=== PATIENT | female | born 1995 | race Caucasian/White ===

== ENCOUNTER 2017-04-12 16:18 | Emergency (ER) | payer OTHER ==
[~2017-04-12] VITALS: Ht 162.6 cm; Wt 99.7 kg
[~2017-04-12 16:18] MED LIST: BCPILLS PO; FLUO20CA34 PO
[2017-04-12 16:21] VITALS: TEMP 36.8; Ht 162.6 cm; Wt 99.7 kg
[2017-04-12] MEDS ORDERED: XYLOCAINE 1%/SOD BICARB 20 ML VIAL INFIL ONE ×2 (16:40→16:45)
[2017-04-12] MEDS ORDERED: DIPHTHERIA/TETANUS/PERTUSSIS 0.5 ML SYR/VIAL IM. ONE (16:45)
[2017-04-12] MEDS ORDERED: CEPH500C PO (17:31)
--- NOTE | 2017-04-12 17:34 | EMERGENCY ROOM VISIT NOTE ---
ED Visit Note First contact with patient: 16:29 CHIEF COMPLAINT: Wrist laceration HISTORY OF PRESENT ILLNESS: This 21-year-old female patient presents to the emergency department with her mother after cutting the left wrist on a piece of glass. The bleeding has stopped. Denies weakness or numbness of the left wrist or hand. The patient rates the pain as stinging and 2/10. The patient denies any other injuries. The patient's Tetanus shot is not up to date. REVIEW OF SYSTEMS: A 6 system review of systems was completed with positives and pertinent negatives listed in the HPI. ALLERGIES: No known drug allergies MEDICATIONS: Reviewed PMH: Otherwise healthy SOCIAL HISTORY: Smokes a few cigarettes per day, occasional alcohol use PHYSICAL EXAM: Vital Signs: Reviewed Nurse's notes, vital signs stable. GENERAL : 21-year-old female, in no acute distress, well-developed, well-nourished. SKIN: There is a 3 cm long laceration on the volar aspect of the left wrist. The edges gape apart with traction. There is no foreign material in the wound and it looks clean. There is no active bleeding. The flexor tendon is visible, but intact. Full flexion and extension of the wrist. Capillary refill less than 2 seconds. Normal sensation to light and sharp touch. EMERGENCY DEPARTMENT COURSE: I examined the patient. Verbal consent was obtained to perform the procedure. Using sterile technique the wound was cleansed with Betadine. The area was sterilely draped. 5 ml of 1% buffered lidocaine was used to anesthetize the laceration on the wrist. Once the patient was anesthetized, the wound was copiously irrigated under pressure with sterile saline. The wound was explored and was as described above. The laceration was repaired using 10 simple interrupted 5-0 nylon sutures with the wound edges being well approximated. The patient tolerated the procedure well. Hemostasis was achieved. The area was cleaned with sterile saline and dressed with bacitracin ointment and bandage. The patient was given 1 dose of Keflex. The patient was given Td immunization. The patient was discharged home in good condition. DIAGNOSIS: Left wrist laceration DISCHARGE INSTRUCTIONS & TREATMENT: Take entire course of antibiotics Keep wound clean. It is okay to gently wash the area with soapy water. Do not submerse it in water for long periods of time such as swimming, going in hot tubs or taking baths until the sutures come out. Do not allow any crusting or dried blood to accumulate on sutures. If this occurs, use a 1:1 solution of hydrogen peroxide/water on a Q-tip to clean the wound. Use an antibiotic ointment for 3-4 days, then let wound dry. Suture removal in 14 days. Return sooner for any signs of infection (increasing redness, swelling, drainage). Ice and elevate for swelling and pain. Ibuprofen 600 mg and Tylenol 1000 mg every 6 hrs for pain.
[2017-04-12] MEDS ORDERED: CEPHALEXIN MONOHYDRATE 250 MG CAP PO ONE (17:45)
[2017-04-12 18:05] VITALS: BP 107/64; PULSE 88; O2SAT 99
== END 2017-04-12 18:16 | disposition home or self-care (01) ==
LOC: C.EDB 16:19 → C.EDD 18:16
DX: S61.512A Laceration without foreign body of left wrist, initial encounter (principal); W25.XXXA Contact with sharp glass, initial encounter; F17.210 Nicotine dependence, cigarettes, uncomplicated; Z23 Encounter for immunization

== ENCOUNTER 2019-02-18 08:46 | Observation (INO) ==
--- NOTE | 2019-02-12 14:27 | PAT Medication Instructions ---
Medication Instructions Date of Service February 12, 2019 Home Medications fluoxetine [Prozac] 40 mg PO QAM montelukast [Singulair] 10 mg PO PM norgestimate-ethinyl estradiol [Tri-Sprintec (28)] 1 tab PO QAM bupropion HCl [Wellbutrin XL] 150 mg PO QAM hydroxyzine HCl 25 mg PO QID NEEDED DO NOT take the morning of surgery norgestimate-ethinyl estradiol [Tri-Sprintec (28)] 1 tab PO QAM Take morning of surgery With a small sip of water, OTHERWISE NOTHING TO EAT OR DRINK AFTER MIDNIGHT: fluoxetine [Prozac] 40 mg PO QAM bupropion HCl [Wellbutrin XL] 150 mg PO QAM hydroxyzine HCl 25 mg PO QID NEEDED (if needed) Take evening before surgery montelukast [Singulair] 10 mg PO PM Other Notes If you have any questions please call us at [phone] or [phone] or [phone] or [phone]
--- NOTE | 2019-02-12 14:29 | Anesthesiology Consultation ---
Date of Service February 12, 2019 Assessment & Plan (1) Encounter for pre-operative examination: - No prior anesthesia records available. Chart Review Chart Review: Acceptable Risk for Surgery and Patient seen in Pre Admission Testing Consults Requested none Teaching & Discussion Pre-Anesthesia Teaching/Discussion Notes: Instructed NPO after midnight before surgery, except medications with 15 cc of water. Medication instructions provided according to the PAT guidelines. History Surgery Operation Date: 02/18/19 07:30 Proposed Procedures p Bilateral Reduction Mammoplasty - Nila Santiago MD Height/Weight Height: 5 ft 5 in Weight: 102.3 kg Allergies Allergy/AdvReac Type Severity Reaction Status Date / Time shrimp Allergy Unknown GI SYMPTOMS Verified 02/09/19 15:05 Penicillins AdvReac Intermediate Nausea and Verified 02/12/19 14:33 Vomiting PISTASCHIO Allergy Unknown HIVES Uncoded 02/09/19 15:05 Medications Home Medications Medication Instructions Recorded Confirmed Last Taken fluoxetine [Prozac] 40 mg PO QAM 02/09/19 02/09/19 Unknown montelukast [Singulair] 10 mg PO PM 02/09/19 02/09/19 Unknown norgestimate-ethinyl estradiol 1 tab PO QAM 02/09/19 02/09/19 Unknown [Tri-Sprintec (28)] bupropion HCl [Wellbutrin XL] 150 mg PO QAM 02/12/19 02/12/19 Unknown hydroxyzine HCl 25 mg PO QID PRN 02/12/19 02/12/19 Unknown Past Medical History Medical History Anxiety Chronic neck and back pain CURRENT ISSUE Depression History of pneumonia GIVEN SINGULAIR TO DECREASE INCIDENCE Seasonal allergies Exercise / Class Metabolic Activity II 4-5 Yardwork/Stairs/Walk up hill (Walks 1-1.5 miles per day. Able to climb FOS easily. Denies CP or SOB. ) Past Surgical History Surgical History Hx of tonsillectomy Hx of wisdom tooth extraction Past Anesthesia History No Hx of Anesthesia Complications and No Family Hx of Anesthesia Complications History of PONV No Hx of PONV and No Hx of Motion Sickness Social History Smoking Status: Former smoker Do You Dip or Chew Tobacco: No Smoking End Date: Quit cigarettes 1 year ago, Quit Juul 3 weeks ago. Hx Alcohol Use: Yes Alcohol type: beer alcohol intake frequency: a few times a week Hx Substance Use: Yes (EVERY 2-3 WKS) substance use type: marijuana Review of Systems Patient denies chest pain, shortness of breath, dyspnea on exertion, joint pain, cough, wheezing, palpitations. +Acid Reflux (rare- will take OTC meds) Physical Exam Vital Signs BP: 117/78 P: 85 R: 16 T: 98.4 SPO2: 97% on RA Constitutional + obese ENMT Thyromental Distance: > or= 3.5 Finger Breadths (4) Mallampati Class: I Neck normal visual inspection and trachea midline; neck extension not limited Respiratory normal respiratory effort Auscultation: lungs clear to auscultation bilaterally Cardiovascular Rate/Rhythm: regular rate and regular rhythm Heart Sounds: no murmur Neurologic moves all extremities Psychiatric Orientation: alert and oriented x 3 Testing Laboratory Results 02/12/19 14:48 PT 11.0 Seconds (9.0-12.0) 02/12/19 14:48 INR 1.1 (0.9-1.1) 02/12/19 14:48 APTT 30.1 Seconds (21.0-31.0) 02/12/19 14:48 Laboratory Tests 02/12/19 14:48 Sodium 139 Potassium 3.5 Chloride 109 H Carbon Dioxide 26 BUN 6 L Creatinine 1.00 Glucose 106 H
[2019-02-12 15:34] LABS: Basophils # (auto) 0.04 K/uL (0-0.2); Basophils % (auto) 0.4 %; Eosinophils # (auto) 0.41 K/uL (0-0.5); Eosinophils % (auto) 4.6 %; Hematocrit (blood only) 39.7 % (37-47); Hemoglobin 13.4 g/dL (12.0-16.0); Immature Granulocytes # (auto) 0.02 K/uL (0.00-0.02); Immature Granulocytes % (auto) 0.2 %; Lymphocytes # (auto) 2.81 K/uL (1.2-3.4); Lymphocytes % (auto) 31.4 %; Mean Corpuscular Hgb Conc 33.8 g/dL (32-36); Mean Corpuscular Volume 86.1 fL (80-100); Monocytes # (auto) 0.63 K/uL (0.11-0.59); Neutrophils # (auto) 5.05 K/uL (1.4-6.5); Neutrophils % (auto) 56.4 %; Platelet Count 331 K/uL (130-400); RDW Coefficient of Variation 12.7 % (11.5-14.5); Red Blood Count 4.61 M/uL (4.2-5.4); White Blood Count 8.96 K/uL (4.8-10.8)
[2019-02-12 15:43] LABS: INR 1.1 (0.9-1.1); Partial Thromboplastin Ratio 1.1; Partial Thromboplastin Time 30.1 Seconds (21.0-31.0)
[~2019-02-18 08:46] MED LIST changes: -BCPILLS PO; +CEFAZOLIN 2000MG 2,000 MG/15 ML SYR IV SCH; -FLUO20CA34 PO; +LR 15ML/HR IV SCH
[2019-02-18] MEDS ORDERED: fentaNYL citrate 100 MCG/2 ML VIAL IV PRN (09:44)
[2019-02-18] MEDS ORDERED: ATROPINE SULFATE 0.1 MG/ML 10ML SYR IV PRN (09:44)
[2019-02-18] MEDS ORDERED: PROMETHAZINE HCL 12.5 MG in SODIUM CHLORIDE 0.9% 50 ML IV PRN ×2 (09:44→14:38)
[2019-02-18] MEDS ORDERED: HYDROmorphone INJ 1 MG/ML SYRINGE IV PRN (09:44)
[2019-02-18] MEDS ORDERED: ePHEDrine sulfate 50 MG/ML AMP IV PRN (09:44)
[2019-02-18] MEDS ORDERED: ONDANSETRON INJ 2 MG/ML 2 ML VIAL IV PRN ×2 (09:44→14:38)
--- NOTE | 2019-02-18 09:50 | History & Physical Bridge Note ---
Date of Service February 18, 2019 History & Physical Bridge Note I have examined the patient, reviewed the History & Physical and in the interval since the performance of the History & Physical I have noted the following changes of clinical significance: urine nicotine/cotinine negative. Will plan to proceed.
[2019-02-18] MEDS ORDERED: fentaNYL citrate 100 MCG/2 ML VIAL ONE ×3 (09:52→14:53)
[2019-02-18] MEDS ORDERED: MIDAZOLAM HCL 1 MG/ML 2ML VIAL ONE (09:52)
[2019-02-18] MEDS ORDERED: PROPOFOL IV EMULSION 10 MG/ML 20 ML VIAL IV ONE (09:52)
[2019-02-18] MEDS ORDERED: LIDOCAINE HCL 2% 2 ML VIAL/AMP(20MG/ML) INFIL ONE (09:52)
[2019-02-18] MEDS ORDERED: ROCURONIUM BROMIDE 10 MG/ML 5 ML VIAL ONE (09:52)
[2019-02-18] MEDS ORDERED: EPINEPHrine INJ 1 MG/ML AMP ONE (09:53)
[2019-02-18] MEDS ORDERED: BUPIVACAINE 0.25% 30 ML VIAL ONE (09:54)
[2019-02-18] MEDS ORDERED: LIDOCAINE/EPINEPHRINE 1% 20 ML VIAL ONE (09:54)
[2019-02-18] MEDS ORDERED: LIDOCAINE HCL 1% 20 ML VIAL ONE (09:54)
[2019-02-18] MEDS ORDERED: ACETAMINOPHEN 1000 MG/100 ML IV IV ONE (09:57)
[2019-02-18 10:33] LABS: Pregnancy Test, Serum Negative (Negative)
[2019-02-18] MEDS ORDERED: KETAMINE HCL INJ 50 MG/ML 10 ML VIAL ONE (10:47)
[2019-02-18] MEDS ORDERED: HYDROmorphone INJ 2 MG/ML SYR/VIAL ONE (11:38)
[2019-02-18] MEDS ORDERED: ONDANSETRON INJ 2 MG/ML 2 ML VIAL ONE (14:18)
[2019-02-18] MEDS ORDERED: DEXAMETHASONE SOD INJ 4 MG/ML VIAL ONE (14:18)
[2019-02-18] MEDS ORDERED: GLYCOPYRROLATE 0.2 MG/ML VIAL ONE (14:18)
[2019-02-18] MEDS ORDERED: NEOSTIGMINE METHYLSULFATE 5 MG/5 ML SYR ONE (14:18)
--- NOTE | 2019-02-18 14:22 | Post Operative Brief Note ---
Immediate Post Op Note v1 Date of Surgery February 18, 2019 Pre & Post Diagnosis Operation Date: 02/18/19 09:50 Pre-Op Diagnosis: Symptomatic Bilateral Macromastia Post-Op Diagnosis: Symptomatic Bilateral Macromastia Procedure Operation Date: 02/18/19 09:50 Actual Procedures p Bilateral Reduction Mammoplasty(Bilateral) - Nila Santiago MD Surgeon Nila Santiago MD Sow Manager Breonna Aly PA-C, Jia Hernandez PA-C Estimated Blood Loss 75 Findings Consistent with Post-Op Diagnosis Specimens Left breast tissue 768 grams right breast tissue 852 grams Drains Main-[place] Drain (x2) Anesthesia Type General Complications none
--- NOTE | 2019-02-18 14:24 | Operative Report ---
Post Operative Report Pre & Post Diagnosis Operation Date: 02/18/19 09:50 Pre-Op Diagnosis: Symptomatic Bilateral Macromastia Post-Op Diagnosis: Symptomatic Bilateral Macromastia Procedure Operation Date: 02/18/19 09:50 Actual Procedures p Bilateral Reduction Mammoplasty(Bilateral) - Nila Santiago MD Surgeon Nila Santiago MD Integrated Circuit Design Engineer Breonna Aly PA-C, Jia Hernandez PA-C Estimated Blood Loss 75 Findings Consistent with Post-Op Diagnosis Specimens left breast tissue 768 grams right breast tissue 852 grams Drains JPx2 Anesthesia Type General Complications none Indications back, neck and shoulder pain due to macromastia Description of Procedure The risks, benefits, and alternatives of the procedure were explained to the patient who agreed and signed consent. She was identified and marked in the preoperative holding area. She was brought to the operating room where she was positioned supine and placed under general anesthesia without incident. Surgical site was prepped and draped sterilely. A time-out procedure was performed. I began with the left side. Markings were reassessed and a 7 cm pedicle was marked. 1% lidocaine with epinephrine was used to anesthetize the planned incisions. A 42 mm cookie cutter was used to circumscribe the nipple-areolar complex. The previously marked 7 cm pedicle was incised using a 15 blade scalpel and deepithelized. I began with the medial dissection of the pedicle using electrocautery. Cautery was used to incise through dermis and breast parenchyma down to the chest wall, taking care not to undermine the pedicle during dissection. A similar procedure was undertaken on the lateral aspect of the pedicle again taking care not to undermine. Lastly, the pedicle was dissected out superiorly using electrocautery and this was carried down to the chest wall as well. I then began with excision of the medial breast tissue followed by lateral aspect of the breast tissue and surrounding keyhole incision. A 15 blade scalpel was used to make the inframammary fold incision and electrocautery was used to deepen the incision through dermis and breast parenchyma. Dissection was then carried superiorly to the level of the superior incision. Superior incision was then incised using a 15 blade scalpel and again dissected using electrocautery. This was undertaken laterally and then around the keyhole portion of the incision. Care was taken to leave some fat on the lateral pectoralis fascia in order to protect the T4 intercostal nerve. Hemostasis was achieved with electrocautery. The specimen was passed off in its entirety for weighing. Additional resection was undertaken from the superior flap in order to facilitate closure of the breast and to provide the best shape. The total resection weight of the left breast was 768 grams. The wound was irrigated with saline and hemostasis was achieved with electrocautery. 0.25% Marcaine plain was used to anesthetize the incisions as well as the pectoralis fascia. A 15 Russian Kuldip drain was brought out through a separate stab incision. The nipple-areolar complex was brought into the keyhole using 2-0 Vicryl deep dermal suture. The wound was closed first in a lateral to mid breast direction and then medial to mid breast direction using 2-0 Vicryl deep dermal sutures. Vertical limb was also approximated using 2-0 Vicryl deep dermals and the nipple-areolar complex was inset using 2-0 Vicryl deep dermal sutures. Next, the superficial dermal layer was closed using 2-0 PDO running Quill suture along the inframammary fold and 3-0 PDS interrupted dermal sutures along the vertical limb and nipple- areolar complex. Lastly 3-0 Monocryl running subcuticular suture was placed. A similar procedure was undertaken on the right side with maximal excision weight of 852 grams. Breasts were symmetric and nipple-areolar complexes were viable bilaterally following wound closure. Dermabond Prineo was applied along the inframammary fold and vertical limb and Dermabond was placed around the nipple-areolar complex. Dry dressings and a surgical bra were placed. The patient was awakened and transferred to recovery room in satisfactory condition. Breonna Aly PA-C was present and scrubbed throughout the procedure and was instrumental in providing retraction during dissection of the pedicle and assisting in wound closure. I attest to the content of the Intraoperative Record and any orders documented therein. Any exceptions are noted below.
[2019-02-18] MEDS ORDERED: ACETAMINOPHEN 325 MG TAB PO PRN (14:38)
[2019-02-18] MEDS ORDERED: MoRPHine SULFATE 2 MG/ML CARP IV PRN (14:38)
[2019-02-18] MEDS ORDERED: OXAZEPAM 10 MG CAPSULE PO PRN (14:38)
[2019-02-18] MEDS ORDERED: MoRPHine SULFATE 4 MG/ML 1 ML CARP\\VIAL IV PRN (14:38)
[2019-02-18] MEDS ORDERED: DiphenhydrAMINE HCL 50 MG/ML VIAL IV PRN (14:38)
[2019-02-18] MEDS ORDERED: OXYCODONE/ACETAMINOPHEN 5mg/325mg TAB PO PRN (14:38)
[2019-02-18] MEDS ORDERED: MoRPHine SULFATE 10 MG/ML CARP/VIAL IV PRN (14:38)
[2019-02-18] MEDS ORDERED: HYDROmorphone INJ 1 MG/ML SYRINGE ONE (14:54)
--- NOTE | 2019-02-18 15:26 | Anesthesiology Progress Note ---
Date of Service February 18, 2019 Anesthesia Post Procedure Vital Signs Vital Signs: Temp Pulse Pulse Resp BP BP Pulse Ox 02/18/19 14:42 37.3 C 101 H 18 139/74 97 02/18/19 09:34 36.7 C 101 H 16 126/71 98 Pain Intensity Bilateral Breast: Pain Intensity: 3 Transfer of Care Handoff Completed per policy Notes Mental Status: alert / awake / arousable and participated in evaluation Patient Amnestic to Procedure: Yes Nausea / Vomiting: adequately controlled Pain: adequately controlled Airway Patency, RR, SpO2: stable & adequate BP & HR: stable & adequate Hydration State: stable & adequate Anesthetic Complications: no major complications apparent and Pt Satisfied with anesthetic care
[2019-02-18] MEDS: OXYCODONE/ACETAMINOPHEN 5mg/325mg TAB PO PRN ×2 (17:32→21:35)
[2019-02-18] MEDS: CEFAZOLIN 2000MG 2,000 MG/15 ML SYR IV SCH (18:13)
[2019-02-18] MEDS: D5W AND 1/2NSS + 20MEQ KCL 20 MEQ/1,000 ML BAG IV SCH (18:13)
[2019-02-18] MEDS ORDERED: MONTELUKAST SODIUM 10 MG TABLET PO SCH (21:00)
[2019-02-19] MEDS: CEFAZOLIN 2000MG 2,000 MG/15 ML SYR IV SCH (02:03)
[2019-02-19] MEDS: OXYCODONE/ACETAMINOPHEN 5mg/325mg TAB PO PRN ×2 (06:04→10:59)
[2019-02-19] MEDS: D5W AND 1/2NSS + 20MEQ KCL 20 MEQ/1,000 ML BAG IV SCH (06:05)
--- NOTE | 2019-02-19 08:14 | Surgery Progress Note ---
Date of Service February 19, 2019 Assessment & Plan (1) Encounter for pre-operative examination: POD #1- Bilateral Reduction Mammoplasty Patient seen and examined this AM and doing very well. Pain well controlled. Patient denies nausea and is tolerating a regular diet. HAFSA drains (x2) removed at bedside without issue. Surgical dressing remains in place- clean and dry. Surgical bra in place. Patient ok for discharge. Both verbal and written discharge instructions provided. All questions answered. Patient has follow-up visit tomorrow at [facility] office. Subjective Patient resting comfortably in bed- pain is well controlled. No new concerns or complaints overnight. Patient notes reported improvement in back and neck pain that she had prior to surgery. Physical Exam Chest (Breasts): Additional Comments: Patient has surgical dressings in place- dry. HAFSA drains (x2) still in place. Results & Data Vital Signs (Past 12 Hours) Vital Signs Temp Pulse Resp BP Pulse Ox 02/19/19 07:58 36.6 C 77 18 121/71 97 02/19/19 03:20 37.0 C 88 16 110/57 L 96 02/18/19 23:36 36.7 C 94 H 16 110/69 95
[2019-02-19] MEDS ORDERED: BuPROPion XL 150 MG TABCR PO SCH (09:00)
[2019-02-19] MEDS ORDERED: MULTIVITAMIN TAB PO SCH (09:00)
[2019-02-19] MEDS ORDERED: FLUOXETINE HCL 20 MG CAP PO SCH (09:00)
--- NOTE | 2019-02-20 12:52 | Discharge Summary ---
Date of Service February 20, 2019 Admission HPI Per Admitting Provider see admission H&P Admission Exam Per Admitting Provider see admission H&P Principal Diagnosis symptomatic macromastia Discharge Exam Constitutional WD/WN, vitals as above Skin + incision (CDI, nipples viable) Psychiatric Orientation: alert and oriented x 3 Discharge Data Allergies Allergy/AdvReac Type Severity Reaction Status Date / Time shrimp Allergy Unknown GI SYMPTOMS Verified 02/18/19 09:29 Penicillins AdvReac Intermediate Nausea and Verified 02/18/19 09:29 Vomiting PISTASCHIO Allergy Unknown HIVES Uncoded 02/18/19 09:29 Procedures Performed Operation Date: 02/18/19 09:50 Actual Procedures p Bilateral Reduction Mammoplasty(Bilateral) - Nila Santiago MD Hospital Course (1) Breast hypertrophy: Patient presented to [facility] with history of symptomatic macromastia. She was taken to the OR and underwent bilateral breast reduction. There were no intraoperative complications. She was taken to recovery and transferred to med/surg for observation. On POD#1, she was feeling well. She was tolerating a regular diet and ambulating. On exam, her vitals were stable. Her incisions were CDI and nipples viable. Her drains were removed. She was discharged home with instructions to follow-up in the office in one day. Total Time Total Time Spent Total Time Spent (In Minutes): 15 Total Time Includes: Examination of the Patient, Discharge Planning and Medication Reconciliation Discharge Plan Discharge Items Patient Disposition: Home - Self-Care Reason For Visit: Symptomatic Macromastia Discharge Diagnosis: Symptomatic Macromastia Discharge Goals: Decrease discomfort and Improve function Activity: As commented below Non-emergency contact: Surgeon Call non-emergency contact if: you have any medication questions, your pain is not controlled, your temperature is above 101.5, your wound has increased redness and your wound has increased drainage Follow-up/Referrals: Nila Santiago MD [Physician] - (Please follow-up at the [facility] office as scheduled on 02/20/2019. Please call the office with any questions or concerns. ) PCP,NO [Primary Care Provider] - Diet: Regular Addtl Provider Instructions: ACTIVITY RECOMMENDATIONS: __Normal activities _X_No bending, lifting or straining X__No driving __Driving allowed when you are off pain medications _X_Walking permitted __You should have help at home for ___ days DRESSINGS: __No dressings required X Keep dressings dry/in place until first office visit __Remove dressings ___ and leave dressings off __Apply ice ___ days __Remove dressings and reapply garment __Apply antibiotic ointment (Bacitracin, Neosporin, etc) to wounds 3-4 times/day for 10 days BATHING: _X_Keep dressings dry _X_Sponge bathing permitted __Showering permitted X__No swimming, hot tubs or soaking in a tub MEDICATIONS: Resume previous medications unless instructed otherwise by your surgeon. X__Do not use aspirin, Motrin, Advil or Ibuprofen as these may promote bleeding. Please use Tylenol. X__Prescription(s) provided: You were provided your prescription for pain medication at your last office visit, please use as prescribed. OTHER INSTRUCTIONS: __Record drain output 2-3 times per day SPECIAL CARE INSTRUCTIONS: * It is normal to have a mild fever after surgery. If your temperature is higher than 101.5 degrees F, please call the office at [phone]. * Constipation is a typical side effect of pain medication. An [id number] stool softener will help relieve this. * Leaking around surgical drains may occur and should not cause concern. Sometimes these drains become clogged. If this happens, remove the bulb and milk the clot out of the tube, then replace the bulb. * Drainage from wounds after liposuction is normal and should be expected. Garments will become soiled. You should protect furniture and bedding. This drainage should mostly subside within 2-3 days. Leave garments in place unless instructed to remove them. * If you have unusual drainage from a wound or are concerned you have an infection or have any questions or concerns, please call the office at [phone]. FOLLOW UP VISIT: If not already scheduled, please call the office, , when you return home after surgery to schedule an appointment to be seen in 1 day. Prescriptions: Continued fluoxetine [Prozac] 40 mg Capsule 40 mg PO QAM RF: 0 norgestimate-ethinyl estradiol [Tri-Sprintec (28)] 0.18/0.215/0.25 mg-35 mcg (28) Tablet 1 tab PO QAM RF: 0 montelukast [Singulair] 10 mg Tablet 10 mg PO PM RF: 0 hydroxyzine HCl 25 mg Tablet 25 mg PO QID PRN (Reason: Anxiety) RF: 0 bupropion HCl [Wellbutrin XL] 150 mg Tablet Extended Release 24 Hr 150 mg PO QAM RF: 0 Stand-Alone Forms: Fashism, Opioid Pain Management Krames/Other Patient Handouts: Surgery Prevent DVT After, Surgery Breast Reduction, Reduction Breast Dc Discharge Orders: Discharge Order (Routine); Ordered 02/19/19 Ordered By: Jia Hernandez Admission Data Admit Date/Time: 02/18/19 14:38 Attending Provider: Nila Santiago Admit Provider: Nila Santiago Primary Care Provider: PCP,NO Service: Surgical Services Other Interventions: Discharge Summary Assessment (RN) Last Done: 02/19/19 09:18 Pending Studies at Discharge: Yes Studies:: Pathology report. DC Date/Time DO NOT enter until pt leaves facility: 02/19/19 11:39
== END 2019-02-19 11:39 | disposition home or self-care (01) ==
LOC: ASU 08:46 → 3W 08:46

== ENCOUNTER 2025-04-27 05:26 | Inpatient (IN) ==
--- NOTE | 2025-04-20 09:09 | Anesthesiology Consultation ---
Date of Service April 20, 2025 Assessment & Plan (1) Encounter for pre-operative examination: Infectious disease screening: Per assessment on 04/20/25- No known recent infectious disease contacts or current infectious disease symptoms. Chart Review Chart Review: employee's representative initiated History Surgery Operation Date: 04/27/25 09:50 Proposed Procedures p Repeat Section - Chip Ayala MD Height/Weight Height: 5 ft 5 in Weight: 121.563 kg Allergies Allergy/AdvReac Type Severity Reaction Status Date / Time pistachio nut Allergy Severe Hives Verified 04/20/25 08:29 Penicillins AdvReac Intermediate Nausea/Vomi Verified 04/20/25 09:07 ting prednisone AdvReac Intermediate "Makes Verified 04/20/25 09:07 angry" Medications Home Medications Medication Instructions Recorded Confirmed Last Taken montelukast 10 mg tablet 10 mg PO PM 02/09/19 04/20/25 07/24/19 (Singulair) PNV 153-FA 400 mcg-om3 35 mg-dha 1 tab PO QAM 04/20/25 04/20/25 Unknown 25 mg-epa 5 mg-fish oil chew tablet ( Gummies) acyclovir 400 mg tablet 400 mg PO TID 04/20/25 04/20/25 Unknown albuterol sulfate 90 mcg/actuation 1 inh inhalation QID PRN Wheezing 04/20/25 04/20/25 Unknown aerosol inhaler aspirin 81 mg tablet,delayed 81 mg PO QAM 04/20/25 04/20/25 Unknown release iron,carbonyl 65 mg-vitamin C 125 1 tab PO BID 04/20/25 04/20/25 Unknown mg tablet,delayed release (Vitron-C) metoclopramide HCl 5 mg tablet 5 mg PO Q6H PRN Nausea And Vomiting 04/20/25 Unknown (Reglan) omeprazole 40 mg capsule,delayed 40 mg PO QAM 04/20/25 04/20/25 Unknown release sertraline 25 mg tablet 25 mg PO QAM 04/20/25 04/20/25 Unknown Past Medical History Medical History Angiomyolipoma left kidney Anxiety Asthma Depression GERD (gastroesophageal reflux disease) History of kidney stones passed on own Seasonal allergies Past Family History Family History Other No pertinent family history in first degree relatives Past Surgical History Surgical History History of section x1 History of esophagogastroduodenoscopy (EGD) Hx of tonsillectomy Hx of wisdom tooth extraction S/P bilateral breast reduction (02/18/19) Social History Smoking Status: Former smoker Do You Dip or Chew Tobacco: No Smoking End Date: 5 yrs ago Hx Alcohol Use: No Alcohol type: beer alcohol intake frequency: a few times a week Hx Substance Use: No substance use type: does not use Substance Use Type Other:: CBD OIL
[2025-04-27] MEDS: LACTATED RINGER'S 1,000 ML IV SCH ×2 (06:07→07:41)
[2025-04-27 06:18] LABS: Hematocrit (blood only) 33.7 % (37.0-47.0); Hemoglobin 11.3 g/dl (12.0-16.0); Immature Granulocytes # (auto) 0.05 K/uL (0.01-0.20); Immature Granulocytes % (auto) 0.7 %; Mean Corpuscular Hemoglobin 27.7 pg (25.0-34.0); Mean Corpuscular Volume 82.6 fL (80.0-100.0); Platelet Count 203 K/uL (130-400); RDW Standard Deviation 43.7 fL (36.4-46.3); Red Blood Count 4.08 M/uL (4.20-5.40); White Blood Count 7.51 K/ul (4.8-10.8)
[2025-04-27] MEDS: ACETAMINOPHEN 500 MG TAB PO SCH (06:20)
[2025-04-27] MEDS ORDERED: SODIUM CHLORIDE 0.9% 100 ML IV PRN (07:13)
[2025-04-27] MEDS ORDERED: ONDANSETRON INJ 2 MG/ML 2 ML VIAL ONE (07:32)
[2025-04-27] MEDS ORDERED: DEXAMETHASONE SOD INJ 4 MG/ML VIAL ONE (07:32)
[2025-04-27] MEDS ORDERED: PHENYLEPHRINE HCL 25 MG/250 ML NSS IV ONE (07:32)
[2025-04-27] MEDS ORDERED: MoRPHine SULFATE PF 1 MG/ML 10 ML AMP/VIAL ONE (07:35)
[2025-04-27] MEDS ORDERED: OXYTOCIN 10 UNITS/ML VIAL ONE (07:39)
--- NOTE | 2025-04-27 07:51 | History & Physical Report ---
Date of Service April 27, 2025 Assessment & Plan (1) History of section: Plan: elective repeat Admission and Anticipated Discharge Date Admission Date: April 27, 2025 History of Present Illness Chief Complaint: elective repeat Primary Care Provider: Tisha Ward PA-C 29 F P1001 at term presents for elective repeat at term Allergies Allergy/AdvReac Type Severity Reaction Status Date / Time pistachio nut Allergy Severe Hives Verified 04/20/25 08:29 Penicillins AdvReac Intermediate Nausea/Vomi Verified 04/20/25 09:07 ting prednisone AdvReac Intermediate "Makes Verified 04/20/25 09:07 angry" Home Medications Medication Instructions Recorded Confirmed Type montelukast 10 mg tablet 10 mg PO PM 02/09/19 04/27/25 History (Singulair) PNV 153-FA 400 mcg-om3 35 mg-dha 1 tab PO QAM 04/20/25 04/27/25 History 25 mg-epa 5 mg-fish oil chew tablet ( Gummies) acyclovir 400 mg tablet 400 mg PO TID 04/20/25 04/27/25 History albuterol sulfate 90 mcg/actuation 1 inh inhalation QID PRN Wheezing 04/20/25 04/20/25 History aerosol inhaler aspirin 81 mg tablet,delayed 81 mg PO QAM 04/20/25 04/27/25 History release iron,carbonyl 65 mg-vitamin C 125 1 tab PO BID 04/20/25 04/27/25 History mg tablet,delayed release (Vitron-C) metoclopramide HCl 5 mg tablet 5 mg PO Q6H PRN Nausea And Vomiting 04/20/25 04/20/25 History (Reglan) omeprazole 40 mg capsule,delayed 40 mg PO QAM 04/20/25 04/27/25 History release sertraline 25 mg tablet 25 mg PO QAM 04/20/25 04/27/25 History Patient History Medical History Angiomyolipoma left kidney GERD (gastroesophageal reflux disease) History of kidney stones passed on own Asthma Depression Anxiety Seasonal allergies Surgical History History of esophagogastroduodenoscopy (EGD) History of section x1 S/P bilateral breast reduction (02/18/19) Hx of tonsillectomy Hx of wisdom tooth extraction Family History Other No pertinent family history in first degree relatives Social History Smoking Status: Never smoker Tobacco Type: E-cigarettes / Vaping Smoking End Date: 5 yrs ago; Second Hand Exposure: No; Do You Dip or Chew Tobacco: No; Tobacco Cessation Education Requested by Patient: No Hx Alcohol Use: No Hx Substance Use: No Preferred Language: Kenyan Communication Ability: Effective 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 Beliefs That Will Affect Care: None marital status: Current Living Situation: Spouse and Family Other Information That Helps Us Care for You: No Feels Safe at Home: Yes Safety Concerns: Feels Safe At This Time Assistive Devices: Glasses OB History Primary at [facility] [place] [employer] History Herpes Review of Systems All systems reviewed & are unremarkable except as noted in HPI & below Physical Exam Constitutional: WD/WN, vitals as above Eyes: PERRL, conjunctivae normal, anicteric sclerae Respiratory: normal respiratory effort, lungs clear to auscultation Cardiovascular: Rate/Rhythm: regular rate and regular rhythm Gastrointestinal (Abdomen): Inspection/Auscultation: abdomen normal to inspection and + abdominal surgical incision Musculoskeletal: Extremities: extremities normal to inspection Skin: no rashes, warm and dry Neurologic: patellar DTR's 2+ bilat, sensation intact Psychiatric: A+Ox3, euthymic affect Results & Data Vital Signs (Past 12 Hours) Vital Signs Temp Pulse Resp BP 04/27/25 07:08 36.7 C 18 04/27/25 07:05 83 113/60 04/27/25 05:46 36.8 C 18 04/27/25 05:40 107 H 120/70 Laboratory Results 04/27/25 05:59 WBC 7.51 RBC 4.08 L Hgb 11.3 L Hct 33.7 L MCV 82.6 MCH 27.7 MCHC 33.5 RDW Std Deviation 43.7 RDW Coeff of Cirilo 14.6 H Plt Count 203 MPV 9.7 Immature Gran % (Auto) 0.7 Neut % (Auto) 71.3 Lymph % (Auto) 16.8 Sutter % (Auto) 9.2 Eos % (Auto) 1.6 Baso % (Auto) 0.4 Neut # (Auto) 5.36 Lymph # (Auto) 1.26 Sutter # (Auto) 0.69 H Eos # (Auto) 0.12 Baso # (Auto) 0.03 Immature Gran # (Auto) 0.05 Blood Type O Positive Antibody Screen NEGATIVE Crossmatch See Detail Monitoring External Monitor Cat 1
[2025-04-27] MEDS: ceFAZolin 3000MG 3,000 MG/72.5 ML BAG IV SCH (07:56)
[2025-04-27] MEDS: CITRIC ACID/SODIUM CITRATE 15 ML UDC PO SCH (07:57)
[2025-04-27] MEDS ORDERED: MoRPHine SULFATE PF 1 MG/ML 10 ML AMP/VIAL INT SPINAL ONE (08:29)
[2025-04-27] MEDS ORDERED: ONDANSETRON INJ 2 MG/ML 2 ML VIAL IV PRN ×2 (08:29→09:32)
[2025-04-27] MEDS ORDERED: LACTATED RINGER'S 500 ML IV PRN (08:29)
[2025-04-27] MEDS ORDERED: PROMETHAZINE 6.25 MG/50.25 ML BAG IV PRN (08:29)
[2025-04-27] MEDS ORDERED: NALOXONE HCL 1 MG in SODIUM CHLORIDE 0.9% 1,000 ML IV PRN (08:29)
[2025-04-27] MEDS ORDERED: diphenhydrAMINE 50 MG/ML VIAL IV PRN (08:29)
[2025-04-27] MEDS ORDERED: METOCLOPRAMIDE HCL 20 MG in SODIUM CHLORIDE 0.9% 50 ML IV PRN (08:29)
[2025-04-27] MEDS ORDERED: NALOXONE HCL 0.4 MG/1 ML VIAL/CARP IV PRN (08:29)
[2025-04-27] MEDS ORDERED: HYDROmorphone INJ 0.5 MG/0.5 ML SYR IV PRN (08:29)
[2025-04-27] MEDS ORDERED: NALBUPHINE HCL INJ 10 MG/ML AMP IV PRN (08:29)
[2025-04-27] MEDS ORDERED: NO NARCOTICS OR SEDATIVES SCH (08:30)
[2025-04-27] MEDS ORDERED: DC INTRASPINAL MORPHINE SCH (08:30)
[2025-04-27] MEDS ORDERED: SODIUM CHLORIDE 0.9% 1,000 ML IV SCH (08:30)
[2025-04-27] MEDS ORDERED: CALCIUM CARBONATE 500 MG CHEWABLE TAB PO PRN (09:32)
[2025-04-27] MEDS ORDERED: ALBUTEROL HFA 8 GM INHALER INH PRN (09:32)
[2025-04-27] MEDS ORDERED: SENNA 8.6 MG TAB PO PRN (09:32)
[2025-04-27] MEDS ORDERED: MAGNESIUM HYDROXIDE SUSP 30 ML UDC PO PRN (09:32)
[2025-04-27] MEDS ORDERED: HYDROCORTISONE ACETATE 25 MG SUPP PR PRN (09:32)
[2025-04-27] MEDS ORDERED: DIPHTHER/TETAN/PERTUS Vaccine (Tdap, Adol/Adult) 0.5mL IM ONE (09:32)
[2025-04-27] MEDS ORDERED: BENZOCAINE 20% SPRY 85 APPLN/85 GM CAN EXT PRN (09:32)
--- NOTE | 2025-04-27 09:35 | Post Operative Brief Note ---
Immediate Post Op Note Date of Surgery April 27, 2025 Pre & Post Diagnosis Operation Date: 04/27/25 07:30 Pre-Op Diagnosis: Repeat Caesarean Section Post-Op Diagnosis: Same;Delivery of a live baby girl at 0834 I identified the patient and participated in the time-out.: Yes Procedure Operation Date: 04/27/25 07:30 Actual Procedures p Repeat Section - Chip Ayala MD Surgeon Chip Ayala MD Kayaking Instructor Dr. Nielsen Quantitative Blood Loss (QBL) 400 ml. Findings Consistent with Post-Op Diagnosis live female Apgars 9/9 weight 8-8 body cord x1 Fluids LR 1800 ml. Specimens Specimen Description: A. Placenta-exam B. Cord Blood Drains Orellana Catheter Anesthesia Type Spinal Complications none Disposition Accompanied Patient To Recovery: Yes Overlapping Procedure I was present for: the critical portions of procedure. I was immediately available: during the entire case. Back up surgeon: used during listed procedure.
--- NOTE | 2025-04-27 09:35 | Anesthesiology Progress Note ---
Date of Service April 27, 2025 Anesthesia Post Procedure Vital Signs Vital Signs: Temp Pulse Resp BP Pulse Ox 04/27/25 09:30 89 99 04/27/25 09:29 36 L 113/55 L 04/27/25 09:26 82 94 04/27/25 09:24 75 100 04/27/25 09:19 79 114/56 L 99 04/27/25 07:08 36.7 C 04/27/25 07:05 83 113/60 04/27/25 05:46 36.8 C 04/27/25 05:40 107 H 120/70 Transfer of Care Handoff Completed per policy Notes Mental Status: alert / awake / arousable Patient Amnestic to Procedure: Yes Nausea / Vomiting: adequately controlled Pain: adequately controlled Airway Patency, RR, SpO2: stable & adequate BP & HR: stable & adequate Hydration State: stable & adequate Neuraxial Anesthesia: was administered and sensory block is resolving Anesthetic Complications: no major complications apparent and Pt Satisfied with anesthetic care
[2025-04-27] MEDS ORDERED: OXYTOCIN 20 UNITS/1002ML LR IV ONE (09:48)
[2025-04-27] MEDS ORDERED: KETOROLAC 30 MG/ML VIAL ONE (09:48)
[2025-04-27] MEDS: KETOROLAC 30 MG/ML VIAL IV SCH (09:52)
[2025-04-27] MEDS: OXYTOCIN 20 UNITS in LACTATED RINGER'S 1,000 ML IV SCH (10:08)
--- NOTE | 2025-04-27 11:46 | Operative Report ---
Post Operative Report Pre & Post Diagnosis Operation Date: 04/27/25 07:30 Pre-Op Diagnosis: Repeat Caesarean Section Post-Op Diagnosis: Same;Delivery of a live baby girl at 0834 I identified the patient and participated in the time-out.: Yes Procedure Operation Date: 04/27/25 07:30 Actual Procedures p Repeat Section - Chip Ayala MD Surgeon Chip Ayala MD Rug Sample Beveler Dr. Nielsen Quantitative Blood Loss (QBL) 400 ml. Findings Consistent with Post-Op Diagnosis live female Apgars 9/9 weight 8-8 body cord x1 Fluids LR 1800 ml. Specimens placenta Drains none Anesthesia Type Spinal Complications none Disposition Accompanied Patient To Recovery: Yes Indications elective repeat at term Description of Procedure Under satisfactory spinal anesthesia the patient was prepped and draped in usual sterile fashion. The patient was identified as Gianni Morton and a timeout was done. The patient received antibiotics preop. A low Pfannenstiel incision through the prior scar was then made carrying the incision down through several layers of the abdominal cavity into the peritoneal cavity where pickups and Metzenbaum scissors were then used to develop the bladder flap this was sharply dissected down and the bladder blade was then entered low segment transverse incision over the lower uterine segment was made the incision was nicked with a scalpel clear fluid was noted the incision was then widened in the AP diameter and the infant was then delivered with the aid of fundal pressure from the vertex presentation there was a body cord x 1 reduced at the time of delivery. The cord was doubly clamped and cut after a 1 minute cord delay delivering a live female Apgars were found to be 9 and 9 with weight of 8 pounds 8 ounces. Cord blood was obtained placenta delivered spontaneously intact and submitted to pathology as a separate specimen. Uterus was exteriorized and then cleaned of all clots and debris with a clean lap pad ring forceps were then placed on both angles the inferior margin bladder blade was replaced the uterus was then closed in a double layer closure starting with 0 Vicryl suture in a continuous interlocking fashion followed by a second imbricating layer. The tubes ovaries bilaterally were found to be within normal limits no active bleeding was noted at the initial sponge needle instrument count were found to be correct. The uterus was then placed back into the normal anatomical position. The fascia was then reapproximated from both ends using #1 Vicryl suture in a continuous fashion. Subcuticular layer was then closed with 3-0 plain suture. And the skin was then reapproximated with 4-0 Monocryl subcuticular stitch. Lianna dressing was then placed on the wound. At the end of the procedure the QBL was 400 mL total urine 150 mL total fluids 1800 mL. The final sponge needle instrument counts were found to be correct the patient was then placed on a stretcher in the supine position and moved to recovery room in stable condition. I attest to the content of the Intraoperative Record and any orders documented therein. Any exceptions are noted below. Please note that Dr. Nielsen was needed to provide retraction, assistance with fundal pressure, closure of uterus and abdomen.
[2025-04-27] MEDS: ACETAMINOPHEN 325 MG TAB PO SCH (15:08)
[2025-04-27] MEDS: SIMETHICONE 80 MG CHEW PO SCH (15:08)
[2025-04-27] MEDS ORDERED: NON-FORMULARY MEDICATION (Iron,Carbonyl-Vitamin C [Vitron-C] 65 mg iron- 125 mg Tablet,Del PO SCH (21:00)
[2025-04-27] MEDS: MONTELUKAST SODIUM 10 MG TABLET PO SCH (21:08)
[2025-04-27] MEDS: DOCUSATE SODIUM 100 MG CAP PO SCH (21:08)
[2025-04-27] MEDS: NALOXONE HCL 0.08 MG in SYRINGE 1.8 ML IV PRN (23:04)
[2025-04-28] MEDS ORDERED: HYDROmorphone INJ 0.5 MG/0.5 ML SYR IV PRN (02:30)
[2025-04-28] MEDS ORDERED: diphenhydrAMINE Capsule 25 MG CAP PO PRN (02:30)
[2025-04-28] MEDS ORDERED: METOCLOPRAMIDE HCL 5 MG TABLET PO PRN (02:30)
[2025-04-28] MEDS ORDERED: ONDANSETRON INJ 2 MG/ML 2 ML VIAL IV PRN (02:30)
[2025-04-28] MEDS ORDERED: diphenhydrAMINE 50 MG/ML VIAL IV PRN (02:30)
[2025-04-28] MEDS ORDERED: PROMETHAZINE 12.5 MG/50.5 ML BAG IV PRN (02:30)
[2025-04-28 06:28] LABS: Hematocrit (blood only) 28.7 % (37.0-47.0); Hemoglobin 9.6 g/dl (12.0-16.0); Immature Granulocytes # (auto) 0.08 K/uL (0.01-0.20); Immature Granulocytes % (auto) 0.7 %; Mean Corpuscular Hemoglobin 28.0 pg (25.0-34.0); Mean Corpuscular Volume 83.7 fL (80.0-100.0); Platelet Count 190 K/uL (130-400); RDW Standard Deviation 44.5 fL (36.4-46.3); Red Blood Count 3.43 M/uL (4.20-5.40); White Blood Count 11.25 K/ul (4.8-10.8)
[2025-04-28] MEDS: PRENATAL VITAMIN 1 TAB PO SCH (07:29)
[2025-04-28] MEDS: FERROUS SULFATE 325 MG TAB PO SCH (07:29)
[2025-04-28] MEDS: SERTRALINE HCL 50 MG TABLET PO SCH (07:30)
--- NOTE | 2025-04-28 08:12 | Obstetrical Progress Note ---
Date of Service April 28, 2025 Assessment & Plan Admission and Anticipated Discharge Date Admission Date: April 27, 2025 Subjective Patient is seen and examined. She feels well, no complaints. Pain is under control with oral meds. Ambulating without dizziness Voiding without difficulty Tolerating regular diet with out N&V Flatus + Bleeding is minimal No fever/ chills/ CP/ SOB/ N&V/ Leg pain Breast feeding without problems Vital Signs Temp Pulse Resp BP Pulse Ox O2 Del Method 04/28/25 03:45 36.5 C 77 18 114/73 97 Room Air 04/28/25 02:29 16 97 04/28/25 02:06 16 96 04/28/25 01:00 16 96 04/28/25 00:10 18 99 04/27/25 23:30 36.6 C 70 18 108/68 96 Room Air Lab Results 04/27/25 04/28/25 Range/Units 05:59 05:48 WBC 7.51 11.25 H (4.8-10.8) K/ul RBC 4.08 L 3.43 L (4.20-5.40) M/uL Hgb 11.3 L 9.6 L (12.0-16.0) g/dl Hct 33.7 L 28.7 L (37.0-47.0) % MCV 82.6 83.7 (80.0-100.0) fL MCH 27.7 28.0 (25.0-34.0) pg MCHC 33.5 33.4 (32.0-36.0) g/dL RDW Std Deviation 43.7 44.5 (36.4-46.3) fL RDW Coeff of Cirilo 14.6 H 14.6 H (11.5-14.5) % Plt Count 203 190 (130-400) K/uL MPV 9.7 9.8 (9.4-12.4) fL Immature Gran % (Auto) 0.7 0.7 % Neut % (Auto) 71.3 70.0 % Lymph % (Auto) 16.8 19.0 % [place] % (Auto) 9.2 9.7 % Eos % (Auto) 1.6 0.3 % Baso % (Auto) 0.4 0.3 % Neut # (Auto) 5.36 7.88 H (1.40-6.50) K/uL Lymph # (Auto) 1.26 2.14 (1.20-3.40) K/uL [place] # (Auto) 0.69 H 1.09 H (0.11-0.59) K/uL Eos # (Auto) 0.12 0.03 (0.00-0.50) K/uL Baso # (Auto) 0.03 0.03 (0.00-0.20) K/uL Immature Gran # (Auto) 0.05 0.08 (0.01-0.20) K/uL Treponema pallidum Ab Negative (Negative) Blood Type O Positive Antibody Screen NEGATIVE Crossmatch See Detail PE: General: Alert, orientedx3, NAD CVS: S1S2 RRR Lungs; CTAB Abd: soft, NT, ND, BS+, fundus firm, below Umbilicus Incision: Clean, dry, intact Perineum intact, Lochia rubra minimal Ext; NT, no edema AP: 29 yo s/p C Section, pod# 1 VSS Afebrile doing well Continue routine postop care Encourage ambulation, PO intake All questions were answered D/C home tomorrow Results & Data Vital Signs (Past 12 Hours) Vital Signs Temp Pulse Resp BP Pulse Ox O2 Del Method 04/28/25 03:45 36.5 C 77 18 114/73 97 Room Air 04/28/25 02:29 16 97 04/28/25 02:06 16 96 04/28/25 01:00 16 96 04/28/25 00:10 18 99 04/27/25 23:30 36.6 C 70 18 108/68 96 Room Air
[2025-04-28] MEDS ORDERED: NON-FORMULARY MEDICATION (Pnv No.153-Fa-Om3-Dha-Epa-Fish [Prenatal Gummies] 400 mcg-35 mg- PO SCH (09:00)
[2025-04-28] MEDS ORDERED: KETOROLAC 30 MG/ML VIAL IV PRN (09:27)
[2025-04-28] MEDS: IBUPROFEN 600 MG TAB PO SCH (09:46)
[2025-04-29 07:01] LABS: Hematocrit (blood only) 30.0 % (37.0-47.0); Hemoglobin 9.9 g/dl (12.0-16.0)
[2025-04-29 09:09] VITALS: BP 128/77; PULSE 83; RESP 18; TEMP 97.7; O2SAT 98
[2025-04-29] MEDS ORDERED: IBUPROFEN 600 MG TAB PO PRN (09:27)
--- NOTE | 2025-04-29 10:49 | Obstetrical Progress Note ---
Date of Service April 29, 2025 Assessment & Plan Admission and Anticipated Discharge Date Admission Date: April 27, 2025 Subjective abdomen soft and non tender incision is clean and dry no calf tenderness ambulating well vaginal bleeding scant hgb 9.9 Results & Data Vital Signs (Past 12 Hours) Vital Signs Temp Pulse Resp BP Pulse Ox O2 Del Method 04/29/25 09:07 36.5 C 83 18 128/77 98 Room Air 04/29/25 04:00 36.6 C 79 16 124/77 96 Room Air
[2025-04-29] MEDS ORDERED: ACETAMINOPHEN 325 MG TAB PO PRN (15:27)
--- NOTE | 2025-04-30 08:54 | Coding Query ---
CODING QUERY To promote full compliance with coding requirements relating to patient care, provider participation is requested in all cases of stencil typist uncertainty. Please assist us with the question(s) below: Coding Question(s): Please document weeks of gestation at time of delivery 40.3 Physician's Response(s): 40.3 Thank you Tg Epps Principal Diagnosis: "that condition established after study, to be chiefly responsible for occasioning the admission of the patient to the hospital for care." Co-Existing Principal Diagnosis: "when two or more diagnoses equally meet the criteria for principal diagnosis as determined by the circumstances of admission, diagnostic work up, and/or therapy provided, and the Alphabetic Index, Tabular List, or another coding guideline does not provide sequencing direction, any one of the diagnoses may be sequenced first." "When the physician has documented what appears to be a current diagnosis in the body of the record, but has not included the diagnosis in the final diagnostic statement, the physician should be asked whether the diagnosis should be added." (Source Coding [facility] 2 QTR90. p3-4) ANDRY
--- NOTE | 2025-05-06 09:39 | Discharge Summary ---
Date of Service May 06, 2025 Admission HPI Per Admitting Provider 29 F P1001 at term presents for elective repeat at term Discharge Data Consultations 04/27/25 05:30 Consult Anesthesiology Stat Procedures Performed Operation Date: 04/27/25 07:30 Actual Procedures p Repeat Section - Chip Ayala MD Hospital Course (1) delivery delivered:
== END 2025-04-29 12:39 | disposition home or self-care (01) | DRG 788 ==
LOC: 4S1 05:26 → EDSTATUS 09:50 → 4E2 11:57